=== PATIENT | female | born 1965 | race Caucasian/White ===

== ENCOUNTER 2016-11-26 11:49 | Inpatient (IN) | payer OTHER ==
[~2016-11-26] VITALS: Ht 157.5 cm; Wt 59.0 kg
--- NOTE | ~2016-11-26 | CON ---
PATIENT'S NAME: CHRISTOS GOODE [facility] AGE: 51 Y [address] ROOM: [address] [place], [place] [address] LOCATION: G3N ADMIT DATE: 11/26/2016 Consultation DISCHARGE DATE: FAMILY PHYSICIAN: PHYSICIAN, UNKNOWN ATTENDING PHYSICIAN: CONCEPCIÓN NORIEGA V DATE OF CONSULTATION: 11/29/2016 REFERRING PHYSICIAN: Tremaine Stovall MD REASON FOR CONSULT: Drug overdose. HISTORY OF PRESENT ILLNESS: The patient is a 51-year-old female who presents with altered mental status. She was found unresponsive by her , taken to a local emergency room where she was intubated and transferred to [facility] for further management. The patient is known to me from her previous hospitalization at [facility]. She says that she has been doing well since the last time I saw her. She says that the day of her admission was the anniversary of her late 's suicide, and she having a lot of flashbacks. She says that she needed something to calm down and drank about 6 beers and took six 1 mg clonazepam tablets. The patient says that she went to bed, and the next thing she remembers is waking up in the hospital. The patient regrets the overdose, which she states was accidental. She denies being suicidal and says that she has been sober for more than 3 months, and stable on her current medications. She has also been seeing her psychiatrist and therapist at the [facility] regularly. The patient denies current depressive, manic, or psychotic symptoms. She also denies thoughts of dying. She denies nightmares, flashbacks, or other PTSD-related symptoms. She reports that she had a similar episode about 6 weeks ago and had presented to the hospital unconscious. She says that at the time, she was thought to have taken an overdose, which she denied. PAST PSYCHIATRIC HISTORY: The patient has a history of bipolar I disorder, PTSD, borderline personality disorder, alcohol and benzodiazepine abuse. She has had multiple psychiatric hospitalizations and has made multiple suicide attempts. She also has a history of self-mutilation by cutting and has attended the [facility] in the past. The patient has also been on several psychotropic medications over the years and says that she has been stable on her current medications. PAST MEDICAL HISTORY: The patient has a history of acute encephalopathy with respiratory failure and kidney injury and was hospitalized at this facility about 6 weeks ago. She says that she has been diagnosed with some cardiac disorder, which she does not know the name. PATIENT'S NAME: CHRISTOS GOODE [facility] AGE: 51 Y [address] ROOM: [address] [address] LOCATION: [facility] ADMIT DATE: 11/26/2016 Consultation DISCHARGE DATE: FAMILY PHYSICIAN: PHYSICIAN, UNKNOWN ATTENDING PHYSICIAN: CONCEPCIÓN NORIEGA V MEDICATIONS: See medication list. ALLERGIES: CODEINE, HYDROCODONE, ACETAMINOPHEN. PAST FAMILY AND SOCIAL HISTORY: The patient is and lives with her third . She has no children. She has a college degree and was in the [employer] for about 4 years. 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 The patient was a witness to her 1st 's suicide following which she was diagnosed with PTSD. She has a history of alcohol abuse, but states that she has been sober until recently. She denies other illicit drug use. She is unaware of any history of mental illness in her family. REVIEW OF SYSTEMS: Ten systems reviewed and all others negative, except as noted in the history. MENTAL STATUS EXAMINATION: The patient is in bed. She is pleasant and cooperative with the interview. She makes good eye contact. She has a normal psychomotor activity. Her speech is normal in rate and volume. She describes her mood as euthymic. Her affect is reactive and spontaneous. Her thoughts are logical and goal- directed. She denies suicidal, homicidal, or violent ideations. She denies hallucinations and has no delusions. She is alert and oriented to time, person, and place. Her concentration and memory are normal. Her language is intact. Her intelligence appears average. Her insight and judgment are fair. DIAGNOSES: 1. Bipolar I disorder, unspecified. 2. Posttraumatic stress disorder. 3. Borderline personality disorder. PLAN: The patient denies current suicidal ideation or depressive symptoms and plans to follow up with her outpatient providers at the [facility]. She does not meet current criteria for involuntary inpatient treatment. Continue current management. Obtain collateral information from her and family and review. Thank you for your consult. PATIENT'S NAME: CHRISTOS GOODE [facility] AGE: 51 Y [address] ROOM: [address] [address] LOCATION: [facility] ADMIT DATE: 11/26/2016 Consultation DISCHARGE DATE: FAMILY PHYSICIAN: PHYSICIAN, UNKNOWN ATTENDING PHYSICIAN: CONCEPCIÓN NORIEGA MD MOA/monique /[id number] d: 11/29/16 1304 t: 11/29/16 1633, CONSULTATION REPORT
--- NOTE | ~2016-11-26 | DS ---
PATIENT'S NAME: CHRISTOS GOODE [facility] AGE: 51 Y [address] ROOM: [place] [address] LOCATION: [facility] ADMIT DATE: 11/26/2016 Discharge Summary DISCHARGE DATE: 11/30/2016 FAMILY PHYSICIAN: Physician, Unknown ATTENDING PHYSICIAN: Joselito Payne V PRINCIPAL DISCHARGE DIAGNOSIS: Acute respiratory failure. SECONDARY DIAGNOSES: 1. Rhabdomyolysis. 2. Transaminitis. 3. Iron-deficiency anemia, mild. 4. Tobacco use. 5. Alcohol abuse. 6. Benzodiazepine abuse. 7. History of suicide attempts in the past. 8. Acute encephalopathy present on admission to the [facility], presented with intubation. 9. Borderline personality disorder. 10. Bipolar 1 disorder. 11. Posttraumatic stress disorder. 12. Hyponatremia, resolved. 13. Coronary artery disease, mild nonocclusive. She had a Lexiscan and was seen by Dr. Del Cid as an outpatient with medical management. 14. Hypomagnesemia. CONSULTATIONS: Psychiatry, Dr. Gaines and Dr. Stovall saw her on 11/29/2016. PROCEDURES: None here. She was intubated at the [facility]. BRIEF HISTORY: Ms. Goode is a 51-year-old female, who was found unresponsive by her at home. Eventually, she admitted that this was the day of her former 's suicide which she witnessed and she was having some flashback, drank a six-pack and took six 1 mg clonazepam. She was admitted to the ICU, monitored overnight, and was thought to be ready for extubation. She was extubated successfully on the morning following admission, 11/27, and transferred to med/surg. She was also found to have elevated CPK of 2966 and was treated with IV fluids. When this did not come down the following day, IV fluid rate was increased. She was briefly given bicarb drip, and her CPKs have come down with current CPK being 1026 this morning. She had been on Lipitor as an outpatient. After this episode of combination of alcohol and benzodiazepine ingestion, her liver enzymes were elevated to a PATIENT'S NAME: CHRISTOS GOODE [facility] AGE: 51 Y [address] ROOM: [place] [address] LOCATION: N ADMIT DATE: 11/26/2016 Discharge Summary DISCHARGE DATE: 11/30/2016 FAMILY PHYSICIAN: Physician, Unknown ATTENDING PHYSICIAN: Joselito Payne V maximum AST of 123. Yesterday, her AST was 113. We will advise her to hold her Lipitor until she sees her PCP and can have liver function tests repeated in a week. She has a mild relatively normocytic anemia with borderline low iron of 34 with the normal range being 37-170, TIBC of 237 (normal range is 250-450), and iron saturation is 14% with the normal range being 20-55. This will need to be followed up as an outpatient. I do not think she needs iron supplements at this time. She should be advised to avoid alcohol. As she is 51-year-old, she needs a screening colonoscopy. She smokes and has been on a NicoDerm patch. She will be encouraged to stop smoking. She is also encouraged to avoid alcohol. The patient has had recurrent episodes of suicide attempts according to my conversation with Dr. Malave. We were in agreement that it would be ideal treatment for her to be seen as an inpatient. However, she refuses and said this is of no help to her. Thus, I have encouraged her to follow up early with Dr. Malave according to my conversation with him today. INSTRUCTIONS AT DISCHARGE: Diet: Cardiac. Activity: As tolerated. Fluids: Plenty of water. Followup: Dr. Malave at the [facility] within 7 days. PCP, who is Meka Haro, within 7 days at the [facility]. MEDICATIONS: At the time of discharge: 1. Lhy-zonoakc-jascyf aspirin 81 mg p.o. daily with food. 2. Fluticasone two sprays to both nostrils daily p.r.n. 3. Lamictal 100 mg p.o. b.i.d. 4. Slow-Mag 64 mg tablets one p.o. twice daily. 5. Metoprolol 25 mg half a tab twice daily. 6. She could continue the NicoDerm patch if she so desires. 7. Seroquel 300 q.h.s. 8. Zoloft 150 daily. 9. She is advised to stop clonazepam, atorvastatin should be held until repeat liver function tests, and I have advised her to avoid Motrin, NSAIDs due to possible kidney damage. CONDITION AT DISCHARGE: Good. The patient expresses agreement with discharge recommendations. PATIENT'S NAME: CHRISTOS GOODE [facility] AGE: 51 Y [address] ROOM: [address] [address] LOCATION: [facility] ADMIT DATE: 11/26/2016 Discharge Summary DISCHARGE DATE: 11/30/2016 FAMILY PHYSICIAN: Physician, Unknown ATTENDING PHYSICIAN: Joselito Payne V BERTHA GUSTAFSON MD LM/modtessy /[id number] CC: FIONA Pennington MD d: 12/01/16 0144 t: 12/03/16 1202, DISCHARGE SUMMARY
--- NOTE | ~2016-11-26 | HP ---
PATIENT'S NAME: CHRISTOS GOODE [facility] AGE: 51 Y [address] ROOM: [place] [address] LOCATION: [facility] ADMIT DATE: 11/26/2016 History & Physical DISCHARGE DATE: FAMILY PHYSICIAN: PHYSICIAN, UNKNOWN ATTENDING PHYSICIAN: CONCEPCIÓN NORIEGA V DATE OF SERVICE: CHIEF COMPLAINT: Unresponsive. HISTORY OF PRESENT ILLNESS: This is obtained entirely from the transferring facility. This is a 51-year- old female with past medical history significant for prior psychiatric issues as well as suicidal attempts. She was found unresponsive by significant other earlier this morning. She was taken to the ER in [facility] in [place]. There, she was found to have a Nilesh coma scale of 5. She was intubated for airway protection. Her workup was significant for a pH of 7.30, pCO2 of 46.2, and O2 of 83, that was prior to intubation. Her electrolytes were significant for sodium of 129, alcohol was 0.19, and CK-MB was 45.3. There were no other significant abnormalities on her lab workup. The patient had a CAT scan of her head and C-spine done due to some ecchymoses on the right side of her inferior orbit. These were unremarkable. She was transferred to [facility] for further care. Of note, the patient had a very similar episode that occurred approximately 6 weeks ago. At that point, the underlying cause for her encephalopathy was not elucidated. She did not volunteer any memory or any attempts at suicide, but also basically she told that she did not remember what happened. She was evaluated by Psychiatry at that point and was eventually sent home. REVIEW OF SYSTEMS: Cannot be obtained due to acute encephalopathy. PAST MEDICAL HISTORY: Cannot be obtained due to encephalopathy. SOCIAL HISTORY: Significant for history of alcohol abuse as extracted from our records. FAMILY HISTORY: Cannot be obtained due to metabolic encephalopathy. PATIENT'S NAME: CHRISTOS GOODE [facility] AGE: 51 Y [address] ROOM: [place] [address] LOCATION: [facility] ADMIT DATE: 11/26/2016 History & Physical DISCHARGE DATE: FAMILY PHYSICIAN: PHYSICIAN, UNKNOWN ATTENDING PHYSICIAN: CONCEPCIÓN NORIEGA V CURRENT MEDICATIONS: As provided by accompanying documentation are: 1. Atorvastatin 80. 2. Baclofen 10. 3. Clonazepam 1 mg 3 times a day. 4. Ibuprofen. 5. Lamotrigine. 6. Metoprolol. 7. Quetiapine. 8. Sertraline. PHYSICAL EXAMINATION: VITAL SIGNS: At this point, blood pressure 150s/80s, heart rate is in high 50s, saturating 100% on 50% FiO2, respirations are about 13 as set by the ventilator, and temperature is 94.6. GENERAL APPEARANCE: An unkempt middle-aged female, arousable, but not following commands (did receive multiple pushes of Versed and rocuronium in the ambulance). NEUROLOGICAL: Exam cannot be conducted. HEENT: Eye exam shows a right infraorbital ecchymosis which is slight. LYMPHATIC: Exam shows no cervical lymphadenopathy. ENDOCRINE: Exam shows no thyromegaly. LUNGS: Clear to auscultation in all raza. HEART: Rate is bradycardic and regular with a slightly wide split S2. There is no lower extremity edema or jugular venous distention. GI: Abdomen is soft, nontender, and nondistended. : Reveals no costovertebral angle tenderness. VASCULAR: 2+ pedal pulses. SKIN: Pale, cold, and dry. PSYCHIATRIC: Cannot be obtained. DIAGNOSTIC DATA: Review of the outside studies has been mentioned in the HPI. An EKG from outside facility shows sinus bradycardia without any other significant abnormalities. ASSESSMENT AND PLAN: This is a 51-year-old female who will be admitted with, 1. Acute encephalopathy. This is likely related to a toxic ingestion, though that is difficult to ascertain. At this point, I do not see a strong indication for any activated charcoal. The event has happened many hours ago. We will provide her with supportive measures with the ventilator. We will sedate her for the time being and allow whatever the insulting agent may be to be metabolized. Of note, the patient did PATIENT'S NAME: CHRISTOS GOODE [facility] AGE: 51 Y [address] ROOM: [id number] [place], [place] [address] LOCATION: [facility] ADMIT DATE: 11/26/2016 History & Physical DISCHARGE DATE: FAMILY PHYSICIAN: PHYSICIAN, UNKNOWN ATTENDING PHYSICIAN: CONCEPCIÓN NORIEGA V receive Narcan and flumazenil at the outside facility though those did not produce any effect. 2. Ventilatory support. We will request an physician practice administrator consultation for ventilator management. 3. Hyponatremia. This is likely related to beer potomania, but we will monitor the patient's electrolytes. We will also check osmolarity to see if there is an osmolar gap, caused by any possible ingestion. 4. History of alcoholism. Once the patient stabilizes and is extubated or maybe even before that, we will consider detoxifying her from alcohol. 5. Mild cardiac enzyme elevation. The patient did have a full cardiac workup on her last admission, as she did have a mild cardiac enzyme elevation then. Her stress and echo were unremarkable, and we will trend her cardiac enzymes and telemetry. 6. History of suicidal attempts and assumed overdoses. We will request a Psychiatry evaluation once the patient is awake and communicative. Additional management will depend on clinical course. Total critical care time dedicated to the care of this patient is 45 minutes. MD CHEKO CRUZ/monique /[id number] D: T: 214 HISTORY & PHYSICAL
[~2016-11-26 11:49] MED LIST: ASPIRIN LO-DOSE81 MG PO; KLONOPIN1 MG PO; LAMICTAL100 MG PO; LIORESAL10 MG PO; LIPITOR80 MG PO; LOPRESSOR25 MG PO; MOTRIN800 MG PO; SEROQUEL300 MG PO; ULTRAM50 MG PO; ZOLOFT100 MG PO
[2016-11-26] MEDS ORDERED: FLONASE 50 MCG/16 GM NOSE (13:36)
[2016-11-26] MEDS ORDERED: MOTRIN800 MG PO (13:37)
[2016-11-26 14:11] LABS: BASOPHIL % 0.1 %; EOSINOPHIL % 0.1 %; HEMATOCRIT 34.9 % (33.0-46.0); HEMOGLOBIN 12.2 g/dL (10.0-15.0); IMMATURE GRANULOCYTE % 0.4 %; LYMPHOCYTE # 0.8 K/uL (0.8-4.0); LYMPHOCYTE % 12.1 %; MCH 30.3 pg (27.0-34.0); MCV 86.6 fl (83.0-98.0); MONOCYTE # 0.4 K/uL (0.0-1.0); MONOCYTE % 6.4 %; MPV 9.9 fl (9.4-12.4); NEUTROPHIL # (ANC) 5.4 K/uL (1.8-7.8); NEUTROPHIL % 80.9 %; NRBC % 0 /100WBC (0-0.00); PLATELET COUNT 209 K/uL (150-450); RBC 4.03 M/uL (3.50-5.50); RDW-CV 11.9 % (11.9-14.6); WBC 6.7 K/uL (4.0-11.0)
[2016-11-26 14:36] LABS: ALBUMIN 3.4 gm/dL (3.5-5.0); ALK PHOS 73 IU/L (33-138); ALT 40 IU/L (12-78); ANION GAP 13.5 (10.0-19.0); AST 96 IU/L (10-40); BLOOD UREA NITROGEN 7 mg/dL (6-24); CHLORIDE 100 mMol/L (96-110); CO2 25 mMol/L (22-32); CREATININE 0.6 mg/dL (0.5-1.1); ESTIMATED GFR (MDRD EQUATION) > 60; MAGNESIUM 1.7 mg/dL (1.3-2.6); PHOSPHORUS 2.3 mg/dL (2.5-4.9); POTASSIUM 3.5 mMol/L (3.7-5.1); SODIUM 135 mMol/L (135-145); TOTAL PROTEIN 6.8 g/dL (6.0-8.4)
[2016-11-26 14:39] LABS: CALCIUM 7.4 mg/dL (8.5-10.5); TOTAL BILIRUBIN 0.3 mg/dL (0.0-1.5)
[2016-11-26 14:39] LABS: BICARBONATE 22.9 mmol/L (18.0-23.0); PCO2 37 mmHg (35-45); PO2 180 mmHg (80-90)
[2016-11-26 15:15] LABS: BILIRUBIN URINE NEGATIVE (NEGATIVE); BLOOD URINE 250 /UL (NEGATIVE); COLOR URINE YELLOW (YELLOW); GLUCOSE URINE NEGATIVE (NEGATIVE); KETONE URINE NEGATIVE (NEGATIVE); LEUKOCYTES URINE NEGATIVE /UL (NEGATIVE); NITRITE URINE NEGATIVE (NEGATIVE); PH URINE 6.5 (4.0-8.0); PROTEIN URINE 30 mg/dL (NEGATIVE); SPEC GRAVITY URINE 1.015 (1.003-1.035); TURBIDITY URINE CLEAR (CLEAR); UROBILINOGEN URINE NORMAL (NORMAL)
[2016-11-26 15:33] LABS: WBC URINE 0-2 #/HPF (NEGATIVE)
[2016-11-26 15:34] LABS: BACTERIA URINE MODERATE (NEGATIVE); MUCUS URINE 1+ (NEGATIVE); RENAL EPITH URINE 0-2 #/HPF (NEGATIVE)
--- NOTE | 2016-11-26 17:19 | NUR ---
Significant Event: Patient follows commands, nods head appropiatley, pupils are equal and reactive. SBP have been mid 80's-160's, MAP's 80's-low 100's, HR upper 50's-60's. Patient is in AC RR of 16, TV of 450, PEEP of 5, FiO2 of 40%, EtCo2 have been upper 20's-low 30's, RR 14-16. Lung sounds are SLC to clear and diminished. Jordan 555ml. Follow up:
--- NOTE | 2016-11-27 05:37 | NUR ---
PATIENT IS SLEEPY BUT EASILY AWAKE WILL FOLLOW SIMPLE COMMANDS,MOVES ALL EXTREMITIES CLEAR UPPER LUNGS SOUND DIMINISHED ON THE BASES,THICK CREAMY SECRTIONS SMALL AMOUNT,A/C VENT MODE FIO2=30%,N3ITU=47%,FLIPPED TO C-PAP AT 05:15 FOLLOW UP:CONTINUE TO MONITOR PATIENT'S HEMODYNAMIC AND RESPIRATORY STATUS CLOSELY,WEAN VENT IF POSSIBLE,NEEDS A SITTER ALL TIME.
[2016-11-27 11:09] LABS: ALBUMIN 2.9 gm/dL (3.5-5.0); ALK PHOS 74 IU/L (33-138); ALT 43 IU/L (12-78); AST 123 IU/L (10-40); BLOOD UREA NITROGEN 5 mg/dL (6-24); CALCIUM 7.8 mg/dL (8.5-10.5); CHLORIDE 113 mMol/L (96-110); CO2 21 mMol/L (22-32); CREATININE 0.7 mg/dL (0.5-1.1); ESTIMATED GFR (MDRD EQUATION) > 60; PHOSPHORUS 2.5 mg/dL (2.5-4.9); POTASSIUM 3.9 mMol/L (3.7-5.1); TOTAL PROTEIN 6.3 g/dL (6.0-8.4)
[2016-11-27 11:17] LABS: ANION GAP 11.9 (10.0-19.0); SODIUM 142 mMol/L (135-145)
[2016-11-27 11:18] LABS: TOTAL BILIRUBIN 0.6 mg/dL (0.0-1.5)
--- NOTE | 2016-11-27 11:30 | NUR ---
Call from Amarilis at [facility] and gave her update on patient. Amarilis says they currently do not have beds available. She will continue to follow. Introduced self and role of care management to patient's mother. Patient is sleeping. Patient lives in [place] with her . 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 Mother says she goes to counseling through the [facility] in [place]. Mother says she thought she was doing OK and had talked to her Saturday evening. Will touchbase with patient when able. Will follow.
--- NOTE | 2016-11-27 16:03 | NUR ---
Significant Event: PT alert. VSS, on room air. PT denies pain. Ambulates with SBA. Jordan removed, no void yet. IV patent to R)hand. Tolerating liquids. PT remains 1:1 sitter for suicide precautions. Family at bedside. Follow up:
--- NOTE | 2016-11-28 04:09 | NUR ---
Shift Summary: Patient is in a 1:1 suicide precaution. Transfered from ICU right before shift change. Patient is cooperative. Tolerating regular diet. Voiding without difficulty. C/O "strained muscle like pain to upper left thigh at beginning of shift. To have psych consult today.
[2016-11-28 05:26] LABS: BASOPHIL % 0.5 %; EOSINOPHIL # 0.1 K/uL (0.0-0.5); HEMATOCRIT 30.1 % (33.0-46.0); HEMOGLOBIN 10.2 g/dL (10.0-15.0); IMMATURE GRANULOCYTE % 0.2 %; LYMPHOCYTE % 25.5 %; MCHC 33.9 gm/dL (32.0-36.5); MCV 88.5 fl (83.0-98.0); MONOCYTE # 0.3 K/uL (0.0-1.0); MONOCYTE % 8.2 %; NEUTROPHIL # (ANC) 2.5 K/uL (1.8-7.8); NEUTROPHIL % 62.6 %; NRBC % 0 /100WBC (0-0.00); RDW-CV 12.5 % (11.9-14.6)
[2016-11-28 05:30] LABS: PLATELET COUNT 161 K/uL (150-450)
[2016-11-28 05:53] LABS: ALBUMIN 2.6 gm/dL (3.5-5.0); ANION GAP 11.6 (10.0-19.0); BLOOD UREA NITROGEN 5 mg/dL (6-24); CALCIUM 7.7 mg/dL (8.5-10.5); CHLORIDE 115 mMol/L (96-110); CO2 22 mMol/L (22-32); CREATININE 0.6 mg/dL (0.5-1.1); ESTIMATED GFR (MDRD EQUATION) > 60; PHOSPHORUS 2.1 mg/dL (2.5-4.9); POTASSIUM 3.6 mMol/L (3.7-5.1); SODIUM 145 mMol/L (135-145)
--- NOTE | 2016-11-28 15:59 | NUR ---
Significant Event: Pt is a/o. Cooperative with cares. Remains 1:1. Amb to BR with SBA, steady gait. IV R) hand, SL L) AC. Psych consult will be after hours tonight. Will remain 1:1 until results of consult. Denies c/o pain. Follow up:
--- NOTE | 2016-11-29 04:21 | NUR ---
Shift Summary: Patient can ambulate without difficulty. Voiding frequently due to IV rate at 200ml/hr. Is cooperative. Engages in conversation. Still needs Psych consult. 1:1 for suicide precautions.
[2016-11-29 05:57] LABS: ALBUMIN 2.6 gm/dL (3.5-5.0); ANION GAP 8.1 (10.0-19.0); CHLORIDE 106 mMol/L (96-110); CO2 33 mMol/L (22-32); CREATININE 0.6 mg/dL (0.5-1.1); ESTIMATED GFR (MDRD EQUATION) > 60; PHOSPHORUS 2.5 mg/dL (2.5-4.9); POTASSIUM 3.1 mMol/L (3.7-5.1); SODIUM 144 mMol/L (135-145)
[2016-11-29 06:04] LABS: BLOOD UREA NITROGEN 2 mg/dL (6-24)
[2016-11-29 06:07] LABS: CPK 1753 IU/L (21-215)
--- NOTE | 2016-11-29 13:00 | NUR ---
RECEIVED CALL FROM NICOLE AT THE [facility] REQUESTING UPDATE. I UPDATED HER ON PATIENT CONDITION AND THAT PATIENT MAY DISCHARGE TOMORRWO. NICOLE HAS NOTED THAT PATIENT'S COUNSELOR HAS BEEN UPDATED BY DR. GUSTAFSON. NICOLE WILL FOLLOW UP WITH PATIENT ONCE SHE IS DISCHARGE.
[2016-11-29 14:01] LABS: ALT 57 IU/L (12-78); AST 113 IU/L (10-40)
--- NOTE | 2016-11-29 15:20 | NUR ---
Significant Event: UP TO BR WITH STANDBY ASSIST..TOLERATES ACTIVITY GOOD. EYE CONTACT GOOD. FOLLOWS ALL COMMANDS. IV INFUSING WELL. TAKES MEALS WELL. 1:1 NURSING OBSERVATION DISCONTINUED AT 1220... Follow up:
--- NOTE | 2016-11-29 17:36 | NUR ---
Significant Event: Pt is a/o. Cooperative with cares. 1:1 order cancelled @ 1230. Has been up to BR to void, amb in halls. Had 2 bags mag sulfate 1 mg each. Bicard completed, now has NS @ 150/hr. Denies c/o pain. No n/v. Has had visitors. Follow up:
[2016-11-30 03:31] LABS: BILIRUBIN URINE NEGATIVE (NEGATIVE); BLOOD URINE NEGATIVE /UL (NEGATIVE); GLUCOSE URINE NEGATIVE (NEGATIVE); KETONE URINE NEGATIVE (NEGATIVE); LEUKOCYTES URINE NEGATIVE /UL (NEGATIVE); NITRITE URINE NEGATIVE (NEGATIVE); PROTEIN URINE NEGATIVE (NEGATIVE); UROBILINOGEN URINE NORMAL (NORMAL)
[2016-11-30 03:48] LABS: COLOR URINE COLORLESS (YELLOW); TURBIDITY URINE CLEAR (CLEAR)
--- NOTE | 2016-11-30 04:09 | NUR ---
Shift Summary: Patient independent with ambulation in room and on the unit. IV fluids at 200ml/hr. Patient voiding multiple times. She is cooperative with care. Engages in conversation. Hopes to go home today if labs improved.
[2016-11-30 06:10] LABS: ALBUMIN 2.4 gm/dL (3.5-5.0); ALK PHOS 59 IU/L (33-138); ALT 51 IU/L (12-78); AST 79 IU/L (10-40); BLOOD UREA NITROGEN 3 mg/dL (6-24); CALCIUM 7.9 mg/dL (8.5-10.5); CHLORIDE 114 mMol/L (96-110); CO2 26 mMol/L (22-32); CREATININE 0.7 mg/dL (0.5-1.1); ESTIMATED GFR (MDRD EQUATION) > 60; POTASSIUM 3.6 mMol/L (3.7-5.1); TOTAL PROTEIN 5.3 g/dL (6.0-8.4)
[2016-11-30 06:18] LABS: ANION GAP 10.6 (10.0-19.0); SODIUM 147 mMol/L (135-145); TOTAL BILIRUBIN 0.3 mg/dL (0.0-1.5)
[2016-11-30] MEDS ORDERED: SLOW-MAG (64 MG1 TAB PO (14:50)
--- NOTE | 2016-11-30 15:20 | NUR ---
Significant Event: Discharge instructions reviewed with patient and family. Reviewed all medications, when to call md, f/u appt, need to schedule additional appt. Refer to discharge instructions for details. Sent with prescriptions, script for lab ordered, crisis #, work release. All questions answered. Encouraged to call md with any questions/concerns. All belongings sent with patient. To front door with [employer] Follow up:
== END 2016-11-30 15:02 | disposition disaster alternative care site (69) | DRG 917 ==
LOC: GICU 11:49 → G3N 11:49 → GICU 11-27 10:18 → G3N 11-27 17:58
PROVIDERS: Internal Medicine; ADMIT Internal Medicine
PROC: 5A1935Z Respiratory Ventilation, Less than 24 Consecutive Hours (ICD-10-PCS; principal; 2016-11-26)
DX: T42.4X1A Poisoning by benzodiazepines, accidental (unintentional), initial encounter (principal); G92 Toxic encephalopathy; J96.01 Acute respiratory failure with hypoxia; M62.82 Rhabdomyolysis; I50.9 Heart failure, unspecified; F17.210 Nicotine dependence, cigarettes, uncomplicated; F19.10 Other psychoactive substance abuse, uncomplicated; F31.9 Bipolar disorder, unspecified; F43.10 Post-traumatic stress disorder, unspecified; I25.10 Atherosclerotic heart disease of native coronary artery without angina pectoris; F60.3 Borderline personality disorder; F10.129 Alcohol abuse with intoxication, unspecified; E87.6 Hypokalemia
CPT/HCPCS: C9113; G0480; J1650; J2704; J3411; J3475; J7030; J7040; J7060